=== PATIENT | female | born 1945 | race Two or more races ===

== ENCOUNTER 2021-10-10 11:11 | Day surgery (SDC) | payer OTHER | END 2021-10-10 14:35 | disposition home or self-care (01) | LOC: AMB-ENDOS 11:11 | PROVIDERS: ATTEND Colon & Rectal Surgery | DX: K57.30 Diverticulosis of large intestine without perforation or abscess without bleeding (principal); Z20.822 Contact with and (suspected) exposure to COVID-19; K55.1 Chronic vascular disorders of intestine; K64.4 Residual hemorrhoidal skin tags; Z92.21 Personal history of antineoplastic chemotherapy; Z85.41 Personal history of malignant neoplasm of cervix uteri ==

== ENCOUNTER 2022-01-28 06:40 | Day surgery (SDC) | payer OTHER ==
[~2022-01-28] VITALS: Ht 157.5 cm; Wt 49.9 kg
== END 2022-01-28 14:50 | disposition home or self-care (01) ==
LOC: O/R 06:40 → CIR.AMB 06:40 → SURG 06:40 → EDSTATUS 11:00 → SURG 11:00 → OB/GYN 12:34 → O/R 12:34 → OB/GYN 12:53 → O/R 12:53 → CIR.AMB 14:50 → O/R 14:50
PROVIDERS: ATTEND Colon & Rectal Surgery
DX: K56.51 Intestinal adhesions [bands], with partial obstruction (principal); Z71.6 Tobacco abuse counseling; F17.200 Nicotine dependence, unspecified, uncomplicated; K57.30 Diverticulosis of large intestine without perforation or abscess without bleeding